=== PATIENT | female | born 1970 | race African-American/Black ===

== ENCOUNTER 2019-05-28 10:38 | Emergency (ER) | payer MEDICAID ==
[~2019-05-28] VITALS: Ht 165.1 cm; Wt 57.2 kg
[2019-05-28] MEDS ORDERED: cloNIDine HCL 0.1 MG TAB PO ONE (11:00)
[2019-05-28] MEDS ORDERED: LABETALOL HCL 200 MG TAB PO ONE (14:00)
[2019-05-28 15:33] VITALS: BP 147/98
== END 2019-05-28 16:27 | disposition home or self-care (01) ==
LOC: ER 10:38 → EDBD 10:38 → ER 16:27
DX: I12.0 Hypertensive chronic kidney disease with stage 5 chronic kidney disease or end stage renal disease (principal); E11.22 Type 2 diabetes mellitus with diabetic chronic kidney disease; N18.6 End stage renal disease; Z99.2 Dependence on renal dialysis

== ENCOUNTER 2019-05-30 07:57 | Emergency (ER) | payer MEDICAID ==
[~2019-05-30] VITALS: Ht 167.6 cm; Wt 68.0 kg
[2019-05-30] MEDS ORDERED: amLODIPine BESYLATE 5 MG TAB PO ONE (08:30)
[2019-05-30] MEDS ORDERED: cloNIDine HCL 0.1 MG TAB PO ONE (08:30)
[2019-05-30 08:44] VITALS: BP 200/123
== END 2019-05-30 09:29 | disposition home or self-care (01) ==
LOC: ER 07:57 → EDBD 07:57 → ER 09:29
DX: I12.0 Hypertensive chronic kidney disease with stage 5 chronic kidney disease or end stage renal disease (principal); E11.22 Type 2 diabetes mellitus with diabetic chronic kidney disease; N18.6 End stage renal disease; Z99.2 Dependence on renal dialysis
CPT/HCPCS: 93005